=== PATIENT | female | born 1990 | race African-American/Black ===

== ENCOUNTER 2023-06-23 10:08 | Emergency (ER) | payer BC, SELFPAY ==
--- NOTE | ~2023-06-23 | US_ITS ---
EXAMINATION: US abdomen limited DATE: 06/23/2023 12:46 INDICATION: Right upper quadrant abdominal pain. Nausea and vomiting. First trimester of . TECHNIQUE: Multiple grayscale and Doppler ultrasound images of the abdomen were obtained. COMPARISON: None FINDINGS: The visualized portions of the head and body of the pancreas are normal. The liver is april l without focal lesion. There is normal flow in main portal vein. The gallbladder is normal in size. No gallstones or gallbladder wall thickening. There is no sonographic Palumbo sign. The common duct is normal and measures 6 mm. IMPRESSION: 1. Normal right upper quadrant ultrasound. Reviewed, dictated and finalized at location A.
[2023-06-23 10:19] VITALS: BP 131/82; PULSE 113; RESP 14; TEMP 36.9; O2SAT 100
[2023-06-23 10:32] LABS: Basophils Percent Auto 0.4 % (0.2-1.2); Eosinophils Absolute Auto 0.1 K/mm3 (0-0.3); Eosinophils Percent Auto 0.7 % (0-4.4); Hematocrit 37.4 % (37.0-47.0); Hemoglobin 12.7 g/dL (12.0-15.0); Immature Granulocyte Absolute 0.04 K/mm3 (0.00-0.031); Immature Granulocyte Percent A 0.5 % (0-0.5); Lymphocytes Absolute Auto 1.85 K/mm3 (0.9-3.2); Mean Corpuscular Hemoglobin 33.3 pg (26-34); Mean Corpuscular Volume 98.2 fl (80-100); Mean Platelet Volume 9.9 fl (7.4-10.4); Monocytes Absolute Auto 0.6 K/mm3 (0.1-0.6); Monocytes Percent Auto 7.6 % (2.6-8.5); Neutrophils Absolute Auto 5.4 K/mm3 (1.3-6.7); Neutrophils Percent Auto 67.8 % (45.5-73.1); Platelet Count Result 303 k/mm3 (150-375); Red Blood Count 3.81 M/mm3 (4.2-5.4); Red Cell Distribution Width 12.7 % (11.5-14.5)
[2023-06-23 10:44] LABS: Alanine Aminotransferase 120 U/L (6-35); Albumin Level 4.5 g/dL (3.5-5.1); Alkaline Phosphatase 47 U/L (38-126); Anion Gap 8 mmol/L (8-16); Aspartate Amino Transferase 75 U/L (14-36); Bilirubin,Total 0.5 mg/dL (0.2-1.3); Blood Urea Nitrogen 10 mg/dL (7-17); Calcium 9.2 mg/dL (8.4-10.2); Carbon Dioxide 22 mmol/L (22-30); Chloride 102 mmol/L (98-107); Estimated CRCL calculation 105 ml/min; Estimated Glomerular Filt Rate > 60; Glucose 91 mg/dL (65-110); Lipase 44 U/L (23-300); Potassium 3.7 mmol/L (3.4-5.0); Sodium 132 mmol/L (137-145)
[2023-06-23 11:16] VITALS: BP 111/69; PULSE 90; RESP 18; TEMP 36.8; O2SAT 100
[2023-06-23] MEDS: SODIUM CHLORIDE 0.9% IV 1,000 ML 999 ML IV CONT ×2 (11:16→12:08)
[2023-06-23 11:44] LABS: Appearance Urine Cloudy (Clear); Bacteria Urine 1+ /hpf; Bilirubin Urine Negative (Negative); Blood Urine Negative (Negative); Color Urine Dark Yellow (Yellow); Glucose Urine UA Negative (Negative); Ketones Urine 4+ mg/dL (Negative); Leukocyte Esterase Ur Negative LEU/UL (Negative); Need Manual Microscopic Reviewed; Nitrate Urine Negative (Negative); Non Pathogenic Casts 0-2; Protein Urine Trace mg/dL (Negative); Specific Grav Ur 1.029 (1.001-1.035); Squamous Epithelial Cell Urine Many /hpf (Few); pH Urine 5.5 (5.0-9.0)
[2023-06-23 11:53] LABS: WBC Urine 0-5 /hpf (0-3)
[2023-06-23 11:54] LABS: Add Urine Microscopic? YES
[2023-06-23] MEDS: ONDANSETRON INJ 4 MG/2 ML VIAL IV PUSH (11:58)
[2023-06-23 11:59] LABS: Influenza A QL RT-PCR Negative (Negative); Influenza B QL RT-PCR Negative (Negative); SARS-CoV-2 RNA PCR Negative (Negative)
--- NOTE | 2023-06-23 12:00 | ED.NAVMDI ---
HPI - Nausea/Vomiting/Diarrhea General Chief complaint: Nausea/Vomiting/Diarrhea Stated complaint: Nausea and Vomiting Time Seen by Provider: 06/23/23 11:00 Source: patient Mode of arrival: ambulatory Limitations: no limitations History of Present Illness HPI Narrative: This is a 32 year old , about 11 weeks , that presents to the ER for nausea and vomiting. Ongoing this , but worsening over the last couple of days. Reports she does have some as needed nausea medication. She has not taken any today. Reports she has not been able to keep much down the last couple of days. Her OB is in [place]. She has had regular pre- care. She denies fever, cough, congestion, current abdominal pain, vaginal bleeding, pelvic cramping, or diarrhea. Related Data Allergies Allergy/AdvReac Type Severity Reaction Status Date / Time No Known Allergies Allergy Verified 06/23/23 10:55 Review of Systems Review of Systems: CONSTITUTIONAL: Denies fever GASTROINTESTINAL: Reports nausea and vomiting. Denies abdominal pain, or diarrhea. GENITOURINARY: Denies dysuria All systems reviewed & are unremarkable except as noted in HPI and below PMFSH Past Medical History Medical History (Updated 06/23/23 @ 14:21 by Deisy Sheihk PA-C) No active medical problems Social History Social History (Updated 06/23/23 @ 12:06 by Deisy Sheikh PA-C) Substance use: never Exam Narrative: GENERAL: Well-appearing, well-nourished, and in no acute distress. HEAD: Normocephalic, atraumatic. EYES: EOMI. CHEST: Clear to auscultation. No respiratory distress. No wheezes rales or rhonchi HEART: Regular rate and rhythm. No murmur heard. Normal peripheral pulses. ABDOMEN: Soft, nontender, nondistended, normal active bowel sounds. EXTREMITIES: Normal range of motion. No edema. SKIN: Warm, dry, no rash. NEURO: No focal deficits. Alert and oriented x3. PSYCH: Normal mood and affect Course Course Emergency Course: Patient was updated on work-up. Reports feeling much better. Able to tolerate p.o. challenge Vital Signs Vital signs: Vital Signs Temperature 98.4 F 06/23/23 10:19 Pulse Rate 113 H 06/23/23 10:19 Respiratory Rate 14 06/23/23 10:19 Blood Pressure 131/82 06/23/23 10:19 Pulse Oximetry 100 06/23/23 10:19 Oxygen Delivery Room Air 06/23/23 10:19 Temperature 98.2 F 06/23/23 11:16 Pulse Rate 90 06/23/23 11:16 Respiratory Rate 18 06/23/23 11:16 Blood Pressure 111/69 06/23/23 11:16 Pulse Oximetry 100 06/23/23 11:16 Oxygen Delivery Room Air 06/23/23 10:19 Procedures Other Procedure Procedure 1: Other Procedure: Bedside ultrasound shows activity and positive cardiac motion. MDM - Nausea/Vomiting/Diarrhea MDM Narrative Medical decision making narrative: Patient presents to the emergency department for nausea and vomiting in . Tachycardic upon arrival, this normalized with IV fluid administration. She is afebrile and nontoxic-appearing. Currently 11 weeks . She has had regular care. No other related concerns. CBC without concerning findings. Metabolic panel shows mild transaminitis. Right upper quadrant ultrasound is normal. Influenza and COVID screens are negative. UA with some evidence of dehydration. No evidence of infection. Bedside ultrasound shows activity and positive cardiac motion. Patient was updated on work-up. Reports feeling much better. Able to tolerate p.o. challenge. Reports she needs to go get her son. Will be discharged and was instructed to follow up with her OB. She was given warnings to return to the ER Differential Diagnosis Differential diagnosis: Likely food poisoning, gastroenteritis and dehydration Lab Data Attestation: I reviewed the patient's lab results. 06/23/23 10:26 06/23/23 10:26 Labs: Lab Results 06/23/23 06/23/23 Range/Units 10:26 11:16 WB
[2023-06-23 14:43] VITALS: BP 109/74; PULSE 81; RESP 16; TEMP 36.8; O2SAT 100
== END 2023-06-23 14:44 | disposition home or self-care (01) ==
PROVIDERS: Emergency Medicine; Emergency Provider Physician Assistant
DX: O21.9 Vomiting of pregnancy, unspecified (principal); O26.891 Other specified pregnancy related conditions, first trimester; R74.01 Elevation of levels of liver transaminase levels; Z20.822 Contact with and (suspected) exposure to COVID-19; Z3A.11 11 weeks gestation of pregnancy
CPT/HCPCS: 36415; 76705; 80053; 81001; 81025; 83690; 85025; 87636; 96361; 96374; 99284; J2405; J7030